=== PATIENT | male | born 1955 | race Caucasian/White ===

== ENCOUNTER → 2018-05-20 | Outpatient (CLI) | payer MEDICARE ==
[2018-05-20 12:33] LABS: BASOPHILS # (AUTO) 0.06 x10^3/uL (0-0.1); BASOPHILS % (AUTO) 1 % (0-1); EOSINOPHILS # (AUTO) 0.25 x10^3/uL (0-0.4); EOSINOPHILS % (AUTO) 3 % (1-7); LYMPHOCYTES # (AUTO) 2.01 x10^3/uL (1-3.4); LYMPHOCYTES % (AUTO) 20 % (22-44); MD NO; MEAN CORPUSCULAR HEMOGLOBIN 35.3 pg (27.5-34.5); MEAN CORPUSCULAR HGB CONC 34.2 g/dL (33.2-36.2); MEAN CORPUSCULAR VOLUME 103.3 fL (81-97); MEAN PLATELET VOLUME 8.8 fL (7.4-10.4); MONOCYTES # (AUTO) 0.52 x10^3/uL (0.2-0.8); MONOCYTES % (AUTO) 5 % (2-9); NEUTROPHILS # (AUTO) 7.29 x10^3/uL (1.8-6.8); NEUTROPHILS % (AUTO) 72 % (42-75); PLATELET COUNT 330 x10^3/uL (130-400); RED BLOOD COUNT 4.03 x10^6/uL (4.38-5.82); RED CELL DISTRIBUTION WIDTH 13.5 % (9.4-14.8)
[2018-05-20 12:38] LABS: MICROSCOPIC NOT IND
[2018-05-20 12:49] LABS: CULTURE INDICATED? NO
[2018-05-20 12:55] LABS: CHLORIDE 106 mmol/L (98-107)
[2018-05-20 13:10] LABS: ALANINE AMINOTRANSFERASE 17 U/L (12-78); ALBUMIN 3.7 g/dL (3.4-5.0); ALKALINE PHOSPHATASE 63 U/L (45-117); ANION GAP 9 mmol/L (5-15); BILIRUBIN,TOTAL 0.4 mg/dL (0.2-1.0); CALCIUM 8.8 mg/dL (8.5-10.1); CHOL/HDL RATIO 2.6; CHOLESTEROL, TOTAL 156 mg/dL (140-239); CREATINE KINASE, TOTAL 57 U/L (39-308); CREATININE 0.84 mg/dL (0.7-1.3); HDL CHOL % 39 % (26-37); HDL CHOLESTEROL (DIRECT) 61 mg/dL (40-60); LDL CHOLESTEROL,CALCULATED 80 mg/dL (54-169); LDL/HDL RATIO 1.3 (0.5-3.0); TRIGLYCERIDES 77 mg/dL (50-200); VLDL CHOLESTEROL 15 mg/dL (0-25)
== END | disposition home or self-care (01) ==
LOC: CFH 11:08
PROVIDERS: ATTEND Family Medicine
DX: I10 Essential (primary) hypertension (principal); I49.9 Cardiac arrhythmia, unspecified; K21.9 Gastro-esophageal reflux disease without esophagitis; M12.9 Arthropathy, unspecified; N40.0 Benign prostatic hyperplasia without lower urinary tract symptoms; N31.9 Neuromuscular dysfunction of bladder, unspecified; N32.81 Overactive bladder; J30.9 Allergic rhinitis, unspecified; M35.9 Systemic involvement of connective tissue, unspecified; F51.01 Primary insomnia; M79.1 Myalgia; R53.83 Other fatigue; R42 Dizziness and giddiness; R51 Headache; R79.9 Abnormal finding of blood chemistry, unspecified; Z79.891 Long term (current) use of opiate analgesic
CPT/HCPCS: 36415; 80053; 80061; 81003; 82550; 84443; 85025; 86140

== ENCOUNTER → 2018-05-22 | Outpatient (CLI) | payer MEDICARE ==
[2018-05-22 15:51] LABS: BASOPHILS # (AUTO) 0.03 x10^3/uL (0-0.1); BASOPHILS % (AUTO) 0 % (0-1); EOSINOPHILS # (AUTO) 0.27 x10^3/uL (0-0.4); EOSINOPHILS % (AUTO) 2 % (1-7); LYMPHOCYTES # (AUTO) 2.04 x10^3/uL (1-3.4); LYMPHOCYTES % (AUTO) 18 % (22-44); MD NO; MEAN CORPUSCULAR HEMOGLOBIN 35.3 pg (27.5-34.5); MEAN CORPUSCULAR HGB CONC 33.7 g/dL (33.2-36.2); MEAN CORPUSCULAR VOLUME 104.8 fL (81-97); MEAN PLATELET VOLUME 9.1 fL (7.4-10.4); MONOCYTES # (AUTO) 0.54 x10^3/uL (0.2-0.8); MONOCYTES % (AUTO) 5 % (2-9); NEUTROPHILS # (AUTO) 8.23 x10^3/uL (1.8-6.8); NEUTROPHILS % (AUTO) 74 % (42-75); PLATELET COUNT 318 x10^3/uL (130-400); RED BLOOD COUNT 4.04 x10^6/uL (4.38-5.82); RED CELL DISTRIBUTION WIDTH 13.3 % (9.4-14.8)
[2018-05-22 16:30] LABS: FOLATE LEVEL > 20.0 ng/mL (3.1-17.5)
== END | disposition home or self-care (01) ==
LOC: CFH 13:00
PROVIDERS: ATTEND Family Medicine
DX: R10.9 Unspecified abdominal pain (principal); R71.8 Other abnormality of red blood cells; R80.9 Proteinuria, unspecified
CPT/HCPCS: 36415; 82043; 82570; 82607; 82746; 83516; 85025; 86340

== ENCOUNTER → 2018-05-23 | Outpatient (CLI) | payer MEDICARE ==
[2018-05-23 16:33] LABS: CREATININE 0.84 mg/dL (0.7-1.3)
== END | disposition home or self-care (01) ==
LOC: LAB 16:02
PROVIDERS: ATTEND Physician Assistant Surgical
DX: R10.9 Unspecified abdominal pain (principal)
CPT/HCPCS: 36415; 82565; 84520

== ENCOUNTER → 2018-05-30 | Outpatient (CLI) | payer MEDICARE ==
[2018-05-30 12:36] LABS: BASOPHILS # (AUTO) 0.03 x10^3/uL (0-0.1); BASOPHILS % (AUTO) 0 % (0-1); EOSINOPHILS # (AUTO) 0.28 x10^3/uL (0-0.4); EOSINOPHILS % (AUTO) 3 % (1-7); LYMPHOCYTES # (AUTO) 1.75 x10^3/uL (1-3.4); LYMPHOCYTES % (AUTO) 18 % (22-44); MD NO; MEAN CORPUSCULAR HEMOGLOBIN 35.1 pg (27.5-34.5); MEAN CORPUSCULAR HGB CONC 34.6 g/dL (33.2-36.2); MEAN CORPUSCULAR VOLUME 101.5 fL (81-97); MEAN PLATELET VOLUME 9.1 fL (7.4-10.4); MONOCYTES # (AUTO) 0.67 x10^3/uL (0.2-0.8); MONOCYTES % (AUTO) 7 % (2-9); NEUTROPHILS # (AUTO) 6.76 x10^3/uL (1.8-6.8); NEUTROPHILS % (AUTO) 71 % (42-75); PLATELET COUNT 286 x10^3/uL (130-400); RED BLOOD COUNT 3.94 x10^6/uL (4.38-5.82)
[2018-05-30 12:44] LABS: ALANINE AMINOTRANSFERASE 17 U/L (12-78); ALBUMIN 3.7 g/dL (3.4-5.0); ANION GAP 7 mmol/L (5-15); CALCIUM 8.9 mg/dL (8.5-10.1); CHLORIDE 105 mmol/L (98-107); CREATININE 0.82 mg/dL (0.7-1.3)
[2018-05-30 12:50] LABS: ALKALINE PHOSPHATASE 62 U/L (45-117); BILIRUBIN,TOTAL 0.6 mg/dL (0.2-1.0); TOTAL PROTEIN 7.8 g/dL (6.4-8.2)
[2018-05-30 13:07] LABS: HCT (SEDRATE) 40.1 % (39.2-51.8)
== END | disposition home or self-care (01) ==
LOC: CFH 10:50
PROVIDERS: ATTEND Family Medicine
DX: M06.9 Rheumatoid arthritis, unspecified (principal); Z79.899 Other long term (current) drug therapy
CPT/HCPCS: 36415; 80053; 85025; 85651; 86140

== ENCOUNTER → 2018-06-20 | Outpatient (CLI) | payer MEDICARE ==
[~2018-06-20] MED LIST: OMNIPAQUE 350 MG/ML, 150 ML BOTTLE ONE
== END | disposition home or self-care (01) ==
LOC: CFH 13:28
PROVIDERS: ATTEND Physician Assistant Surgical
DX: R91.8 Other nonspecific abnormal finding of lung field (principal); M84.48XA Pathological fracture, other site, initial encounter for fracture
CPT/HCPCS: 74178; Q9967

== ENCOUNTER → 2018-07-09 | Outpatient (CLI) | payer MEDICARE | END | disposition home or self-care (01) | LOC: RAD 07:35 | PROVIDERS: ATTEND Family Medicine | DX: R07.81 Pleurodynia (principal); R91.8 Other nonspecific abnormal finding of lung field | CPT/HCPCS: 78306; A9503 ==

== ENCOUNTER → 2018-07-11 | Outpatient (CLI) | payer MEDICARE ==
[2018-07-11 15:25] LABS: BASOPHILS # (AUTO) 0.06 x10^3/uL (0-0.1); BASOPHILS % (AUTO) 1 % (0-1); EOSINOPHILS # (AUTO) 0.37 x10^3/uL (0-0.4); EOSINOPHILS % (AUTO) 3 % (1-7); LYMPHOCYTES # (AUTO) 2.15 x10^3/uL (1-3.4); LYMPHOCYTES % (AUTO) 19 % (22-44); MD NO; MEAN CORPUSCULAR HEMOGLOBIN 34.5 pg (27.5-34.5); MEAN CORPUSCULAR HGB CONC 34.4 g/dL (33.2-36.2); MEAN CORPUSCULAR VOLUME 100.4 fL (81-97); MEAN PLATELET VOLUME 8.2 fL (7.4-10.4); MONOCYTES # (AUTO) 0.81 x10^3/uL (0.2-0.8); MONOCYTES % (AUTO) 7 % (2-9); NEUTROPHILS # (AUTO) 8.16 x10^3/uL (1.8-6.8); NEUTROPHILS % (AUTO) 71 % (42-75); PLATELET COUNT 403 x10^3/uL (130-400); RED BLOOD COUNT 4.05 x10^6/uL (4.38-5.82); RED CELL DISTRIBUTION WIDTH 12.4 % (9.4-14.8)
[2018-07-11 15:46] LABS: ALBUMIN 3.3 g/dL (3.4-5.0); ANION GAP 9 mmol/L (5-15); CALCIUM 9.1 mg/dL (8.5-10.1); CHLORIDE 102 mmol/L (98-107)
[2018-07-11 15:59] LABS: ALANINE AMINOTRANSFERASE 17 U/L (12-78); ALKALINE PHOSPHATASE 79 U/L (45-117); BILIRUBIN,TOTAL 0.5 mg/dL (0.2-1.0); TOTAL PROTEIN 7.8 g/dL (6.4-8.2)
== END | disposition home or self-care (01) ==
LOC: CFH 14:31
PROVIDERS: ATTEND Family Medicine
DX: M06.9 Rheumatoid arthritis, unspecified (principal); Z79.899 Other long term (current) drug therapy
CPT/HCPCS: 36415; 80053; 85025; 85651; 86140

== ENCOUNTER 2018-07-12 05:47 | Day surgery (SDC) | payer MEDICARE ==
[~2018-07-12] VITALS: Ht 175.3 cm; Wt 85.0 kg
[2018-07-12 06:36] VITALS: BP 143/85
[2018-07-12] MEDS ORDERED: FENTANYL PF 100 MCG/2ML ONE (07:39)
[2018-07-12] MEDS ORDERED: MIDAZOLAM 1 MG/ML, 5ML ONE (07:39)
[2018-07-12] MEDS ORDERED: NALOXONE 1 MG/ML, 2ML ONE (07:39)
[2018-07-12] MEDS ORDERED: FLUMAZENIL 0.1 MG/1 ML, 5ML ONE (07:39)
[2018-07-12] MEDS ORDERED: OMNIPAQUE 350 MG/ML, 75ML BOTTLE ONE (08:37)
[2018-07-12] MEDS ORDERED: LIDOCAINE-MPF 1%, 5ML ONE (08:48)
== END 2018-07-12 12:30 | disposition home or self-care (01) ==
LOC: OUT 05:47
PROVIDERS: ATTEND Family Medicine
DX: C76.1 Malignant neoplasm of thorax (principal); J98.4 Other disorders of lung; I10 Essential (primary) hypertension; F19.90 Other psychoactive substance use, unspecified, uncomplicated
CPT/HCPCS: 32400; 32405; 71045; 71260; 77012; 88305; 99156; 99157; J2250; J3010; Q9967; J2310

== ENCOUNTER → 2018-07-26 | Outpatient (CLI) | payer MEDICARE | END | disposition home or self-care (01) | LOC: PETCFH 07:40 | PROVIDERS: ATTEND Family Medicine | DX: R91.8 Other nonspecific abnormal finding of lung field (principal); R59.0 Localized enlarged lymph nodes; C34.90 Malignant neoplasm of unspecified part of unspecified bronchus or lung | CPT/HCPCS: 78815; A9552 ==

== ENCOUNTER → 2018-08-28 | Outpatient (CLI) | payer MEDICARE ==
[2018-08-28 16:10] LABS: ALBUMIN 3.4 g/dL (3.4-5.0); ANION GAP 5 mmol/L (5-15); CALCIUM 9.6 mg/dL (8.5-10.1); CHLORIDE 97 mmol/L (98-107)
[2018-08-28 16:15] LABS: ALANINE AMINOTRANSFERASE 18 U/L (12-78); ALKALINE PHOSPHATASE 84 U/L (45-117); BILIRUBIN,TOTAL 0.3 mg/dL (0.2-1.0); CREATININE 1.11 mg/dL (0.7-1.3); TOTAL PROTEIN 7.9 g/dL (6.4-8.2)
== END | disposition home or self-care (01) ==
LOC: CFH 11:14
PROVIDERS: ATTEND Internal Medicine Hematology & Oncology
DX: C34.82 Malignant neoplasm of overlapping sites of left bronchus and lung (principal)
CPT/HCPCS: 36415; 80053

== ENCOUNTER 2018-10-22 08:11 | Outpatient (CLI) | payer MEDICARE | END 2018-10-22 23:59 | disposition home or self-care (01) | LOC: ROC 08:11 | PROVIDERS: ATTEND Radiology Radiation Oncology | DX: Z08 Encounter for follow-up examination after completed treatment for malignant neoplasm (principal); C34.12 Malignant neoplasm of upper lobe, left bronchus or lung | CPT/HCPCS: G0463 ==

== ENCOUNTER 2018-11-04 10:05 | Outpatient (CLI) | payer MEDICARE ==
[2018-11-04] MEDS ORDERED: OMNIPAQUE 350 MG/ML, 100ML BOTTLE ONE (14:24)
== END 2018-11-04 23:59 | disposition home or self-care (01) ==
LOC: CFH 10:05
PROVIDERS: ATTEND Internal Medicine Hematology & Oncology
DX: C34.82 Malignant neoplasm of overlapping sites of left bronchus and lung (principal); C79.51 Secondary malignant neoplasm of bone; J84.10 Pulmonary fibrosis, unspecified; R91.1 Solitary pulmonary nodule; R59.9 Enlarged lymph nodes, unspecified
CPT/HCPCS: 71260; Q9967

== ENCOUNTER → 2018-11-27 | Outpatient (CLI) | payer MEDICARE | END | disposition home or self-care (01) | LOC: PETCFH 07:59 | PROVIDERS: ATTEND Internal Medicine Hematology & Oncology | DX: C34.82 Malignant neoplasm of overlapping sites of left bronchus and lung (principal); J84.9 Interstitial pulmonary disease, unspecified; R91.1 Solitary pulmonary nodule; N28.1 Cyst of kidney, acquired | CPT/HCPCS: 78815; A9552 ==

== ENCOUNTER 2018-12-12 10:38 | Day surgery (SDC) | payer MEDICARE ==
[~2018-12-12] VITALS: Ht 175.3 cm; Wt 66.6 kg
[2018-12-12 11:21] VITALS: BP 116/80
[2018-12-12] MEDS ORDERED: SODIUM CHLORIDE 0.9% 1,000 ML IV SCH (11:36)
[2018-12-12] MEDS ORDERED: FENTANYL PF 100 MCG/2ML ONE (12:19)
[2018-12-12] MEDS ORDERED: NALOXONE 1 MG/ML, 2ML ONE (12:19)
[2018-12-12] MEDS ORDERED: FLUMAZENIL 0.1 MG/1 ML, 5ML ONE (12:19)
[2018-12-12] MEDS ORDERED: MIDAZOLAM 1 MG/ML, 5ML ONE (12:19)
== END 2018-12-12 16:55 | disposition home or self-care (01) ==
LOC: OUT 10:38
PROVIDERS: ATTEND Internal Medicine Hematology & Oncology
DX: J93.83 Other pneumothorax (principal); C34.82 Malignant neoplasm of overlapping sites of left bronchus and lung; J45.909 Unspecified asthma, uncomplicated; I10 Essential (primary) hypertension; Z87.891 Personal history of nicotine dependence
CPT/HCPCS: 32405; 71045; 77012; 88305; 99156; J2250; J3010; J7030; 99157; J2310

== ENCOUNTER → 2019-01-08 | Outpatient (CLI) | payer MEDICARE ==
[~2019-01-08] MED LIST changes: +CITA20TA6 PO; +FLUT1DIS3 INH; +FOLI-17 PO; +GABA300C10 PO; +IBUP-1222 PO; +LIDO700A20 TD; +MONT10TA9 PO; +MORP-52 PO; -OMNIPAQUE 350 MG/ML, 150 ML BOTTLE ONE; +SENN8.6T98 PO
== END | disposition home or self-care (01) ==
LOC: RAD 11:38
PROVIDERS: ATTEND Internal Medicine Hematology & Oncology
DX: M79.604 Pain in right leg (principal); R60.0 Localized edema

== ENCOUNTER 2019-01-13 07:41 | Outpatient (CLI) | payer MEDICARE ==
[2019-01-17] MEDS ORDERED: PRED20TA PO (14:10)
[2019-01-17] MEDS ORDERED: CEFD300C37 PO (14:10)
[2019-01-17] MEDS ORDERED: AZIT500T5 PO (14:10)
[2019-01-17] MEDS ORDERED: OMEP-110 PO (14:10)
== END 2019-01-13 23:59 | disposition home or self-care (01) ==
LOC: ROC 07:41 → EDSTATUS 08-26 13:16
PROVIDERS: ATTEND Radiology Radiation Oncology
DX: Z02.9 Encounter for administrative examinations, unspecified (principal)

== ENCOUNTER 2019-01-26 13:17 | Inpatient (IN) | payer MEDICARE ==
[~2019-01-26] VITALS: Ht 175.3 cm; Wt 64.1 kg
[~2019-01-26 13:17] MED LIST changes: +AZIT500T5 PO; +CEFD300C37 PO; +OMEP-110 PO; +PRED20TA PO
[2019-01-26] MEDS ORDERED: IBUP-1222 PO (14:03)
[2019-01-26 14:17] LABS: ALBUMIN 2.4 g/dL (3.4-5.0); ANION GAP 9 mmol/L (5-15); CALCIUM 8.4 mg/dL (8.5-10.1); CHLORIDE 104 mmol/L (98-107); CREATININE 1.07 mg/dL (0.7-1.3)
[2019-01-26 14:31] LABS: MEAN CORPUSCULAR HEMOGLOBIN 30.2 pg (27.5-34.5); MEAN CORPUSCULAR HGB CONC 32.7 g/dL (33.2-36.2); MEAN CORPUSCULAR VOLUME 92.3 fL (81-97); PLATELET COUNT 318 x10^3/uL (130-400); RED BLOOD COUNT 3.01 x10^6/uL (4.38-5.82); RED CELL DISTRIBUTION WIDTH 16.2 % (9.4-14.8)
--- NOTE | 2019-01-26 15:07 | NUR ---
LATE NOTE ENTRY FOR 1330: Pt presents to ED from home with c/o increased shortness of breath at rest and with ambulation. Pt wears oxygen via nasal cannula at 3L at home. Pt on 6L oxygen NC to maintain spo2% above 90%. Pt signed off of hospice today to be evaluated for PE. Pt diagnosed with stage 4 lung cancer. Pt wants to recieve evaluation and treatment for possible PE. Pt would like to go back home on hospice after treatment.
[2019-01-26] MEDS ORDERED: OMNIPAQUE 350 MG/ML, 100ML BOTTLE ONE (15:13)
[2019-01-26 15:21] LABS: BASOPHILS % (AUTO) 0 % (0-1); EOSINOPHILS # (AUTO) 0.02 x10^3/uL (0-0.4); EOSINOPHILS % (AUTO) 0 % (1-7); LYMPHOCYTES # (AUTO) 0.24 x10^3/uL (1-3.4); LYMPHOCYTES % (AUTO) 1 % (22-44); MD SCAN; MONOCYTES # (AUTO) 0.29 x10^3/uL (0.2-0.8); MONOCYTES % (AUTO) 1 % (2-9); NEUTROPHILS # (AUTO) 23.49 x10^3/uL (1.8-6.8); NEUTROPHILS % (AUTO) 98 % (42-75)
[2019-01-26] MEDS ORDERED: CEFTRIAXONE PMX 1GM/50ML 50 ML IV ONE (16:00)
--- NOTE | 2019-01-26 16:05 | NUR ---
Patient is resting comfortably in bed. Vital Signs within normal limits.
[2019-01-26] MEDS ORDERED: CEFTRIAXONE PMX 1GM/50ML 50 ML ONE (16:41)
--- NOTE | 2019-01-26 17:24 | NUR ---
REPORT GIVEN TO AISSATOU LUGO. PT TO TRANSFER WITH FAMILY AND ALL BELONGINGS TO ROOM 334.
[2019-01-26] MEDS ORDERED: FUROSEMIDE 20 MG/2 ML IV ONE (17:30)
[2019-01-26 17:52] VITALS: BP 115/74
[2019-01-26] MEDS ORDERED: ACETAMINOPHEN 325 MG TABLET PO PRN (18:00)
[2019-01-26] MEDS ORDERED: LIDODERM 5% PATCH TD SCH (18:00)
[2019-01-26] MEDS ORDERED: IBUPROFEN 600 MG TABLET PO PRN (18:00)
[2019-01-26] MEDS: HEPARIN 5,000 UNITS/ML, 1ML SQ SCH (18:20)
[2019-01-26 19:24] VITALS: BP 119/72
[2019-01-26] MEDS ORDERED: ALBUTEROL/IPRATROPIUM 2.5MG/0.5MG, 3 ML ONE (19:28)
[2019-01-26] MEDS ORDERED: ALBUTEROL/IPRATROPIUM 2.5MG/0.5MG, 3 ML NPPB PRN (20:00)
[2019-01-26] MEDS: GABAPENTIN 300 MG CAPSULE PO SCH (20:25)
[2019-01-26] MEDS: LACTULOSE 10 GM/15 ML UDC PO SCH (20:25)
[2019-01-26] MEDS: DOXYCYCLINE 100MG TABLET PO SCH (20:26)
[2019-01-26] MEDS ORDERED: SENNA/DOCUSATE TABLET PO SCH (21:00)
[2019-01-26] MEDS: SENNA/DOCUSATE TABLET PO SCH (21:44)
[2019-01-27 01:58] VITALS: BP 128/76
[2019-01-27] MEDS: HEPARIN 5,000 UNITS/ML, 1ML SQ SCH ×2 (02:42→09:28)
[2019-01-27 04:27] LABS: MEAN CORPUSCULAR HEMOGLOBIN 29.8 pg (27.5-34.5); MEAN CORPUSCULAR HGB CONC 32.5 g/dL (33.2-36.2); MEAN CORPUSCULAR VOLUME 91.5 fL (81-97); MEAN PLATELET VOLUME 7.3 fL (7.4-10.4); PLATELET COUNT 316 x10^3/uL (130-400); RED CELL DISTRIBUTION WIDTH 15.5 % (9.4-14.8)
[2019-01-27 04:35] LABS: ALBUMIN 2.4 g/dL (3.4-5.0); ANION GAP 8 mmol/L (5-15); CALCIUM 8.5 mg/dL (8.5-10.1); CHLORIDE 102 mmol/L (98-107)
[2019-01-27 04:48] LABS: ALANINE AMINOTRANSFERASE 16 U/L (12-78); ALKALINE PHOSPHATASE 79 U/L (45-117); BILIRUBIN,TOTAL 0.2 mg/dL (0.2-1.0); CREATININE 0.99 mg/dL (0.7-1.3); TOTAL PROTEIN 6.2 g/dL (6.4-8.2)
[2019-01-27 05:02] LABS: BASOPHILS % (AUTO) 0 % (0-1); EOSINOPHILS % (AUTO) 0 % (1-7); LYMPHOCYTES # (AUTO) 0.35 x10^3/uL (1-3.4); LYMPHOCYTES % (AUTO) 2 % (22-44); MD SCAN; MONOCYTES # (AUTO) 0.39 x10^3/uL (0.2-0.8); MONOCYTES % (AUTO) 2 % (2-9); NEUTROPHILS % (AUTO) 96 % (42-75)
[2019-01-27 07:05] VITALS: BP 144/82
[2019-01-27] MEDS ORDERED: OMEPRAZOLE 20 MG CAPSULE.DR PO SCH (07:30)
[2019-01-27] MEDS ORDERED: methylPREDNISolone SOD SUCC 125 MG/2 ML IVPush SCH (09:00)
[2019-01-27] MEDS ORDERED: SENNA/DOCUSATE TABLET PO SCH (09:00)
[2019-01-27] MEDS ORDERED: ALBUTEROL/IPRATROPIUM 2.5MG/0.5MG, 3 ML NPPB SCH (09:00)
[2019-01-27] MEDS ORDERED: CITALOPRAM 20 MG TABLET PO SCH (09:00)
[2019-01-27] MEDS ORDERED: FOLIC ACID 1 MG TABLET PO SCH (09:00)
[2019-01-27] MEDS ORDERED: MONTELUKAST 10 MG TABLET PO SCH (09:00)
[2019-01-27] MEDS: GABAPENTIN 300 MG CAPSULE PO SCH (09:27)
[2019-01-27] MEDS: SENNA/DOCUSATE TABLET PO SCH (09:27)
[2019-01-27] MEDS: LACTOBACILLUS CHEW TABLET PO SCH ×2 (09:27→11:19)
[2019-01-27] MEDS: DOXYCYCLINE 100MG TABLET PO SCH (09:27)
[2019-01-27] MEDS: LACTULOSE 10 GM/15 ML UDC PO SCH (09:27)
[2019-01-27] MEDS ORDERED: ACID1TAB7 PO (10:31)
[2019-01-27] MEDS ORDERED: PRED20TA PO (10:31)
[2019-01-27] MEDS ORDERED: AMOX1TAB12 PO (10:31)
[2019-01-27] MEDS ORDERED: DOXY100T PO (10:31)
== END 2019-01-27 11:58 | disposition hospice, home (50) | DRG 193 ==
LOC: ED 16:17 → 3NW 16:41
PROVIDERS: ADMIT Hospitalist; ATTEND Hospitalist
DX: J18.9 Pneumonia, unspecified organism (principal); E43 Unspecified severe protein-calorie malnutrition; E87.2 Acidosis; J44.0 Chronic obstructive pulmonary disease with (acute) lower respiratory infection; J44.1 Chronic obstructive pulmonary disease with (acute) exacerbation; M84.48XA Pathological fracture, other site, initial encounter for fracture; D63.8 Anemia in other chronic diseases classified elsewhere; D64.81 Anemia due to antineoplastic chemotherapy; F12.90 Cannabis use, unspecified, uncomplicated; Z68.20 Body mass index [BMI] 20.0-20.9, adult; F17.210 Nicotine dependence, cigarettes, uncomplicated; F20.9 Schizophrenia, unspecified; G89.4 Chronic pain syndrome; T45.1X5A Adverse effect of antineoplastic and immunosuppressive drugs, initial encounter; Z51.5 Encounter for palliative care; Z66 Do not resuscitate; Z82.49 Family history of ischemic heart disease and other diseases of the circulatory system; Z85.118 Personal history of other malignant neoplasm of bronchus and lung; Z82.5 Family history of asthma and other chronic lower respiratory diseases; Z92.3 Personal history of irradiation; Z99.81 Dependence on supplemental oxygen; M06.9 Rheumatoid arthritis, unspecified
CPT/HCPCS: 36415; 71275; 80048; 80053; 82040; 83605; 83735; 84100; 84145; 85025; 87040; 93005; 93306; 94640; 96365; G0378; J0696; J1644; J7620; Q9967; J1940; J2930